=== PATIENT | male | born 1970 | race Caucasian/White ===

== ENCOUNTER 2017-04-26 11:40 | Emergency (ER) | payer SELFPAY ==
[~2017-04-26 11:40] MED LIST: CLIN150 PO; HYDR-3580 PO
[2017-04-26 11:42] VITALS: BP 161/96; PULSE 97; RESP 16; TEMP 97.5; O2SAT 95
[2017-04-26] MEDS ORDERED: predniSONE 20 MG TAB PO ONE (12:00)
[2017-04-26] MEDS ORDERED: RESP: ALBUTEROL 2.5 MG/IPRATROPIUM 0.5 MG NEB (SCH) INH ONE (12:00)
--- NOTE | 2017-04-26 12:02 | PD ---
HPI Chief Complaint: Respiratory Symptoms Time Seen by Provider: 12:02 Travel History International Travel<30 days: No Contact w/Intl Traveler<30days: No Traveled to known affect area: No History of Present Illness HPI 47-year-old male presents to the emergency department complaining of increased shortness of breath for 2 weeks. Patient states that he has had a productive cough with yellow sputum which is not normal for him. Patient states he has had a mild clear rhinorrhea. Patient denies fever, chills, chest pain, abdominal pain, urinary discomfort. States he is able to walk about 4 blocks before resting. Patient has WADE and has not been using his CPAP machine for 6 months because it is "broken". Patient states he occasionally has lower extremity edema but denies any today. Patient states that his knees are bothering him but admits to having meniscal injuries. Patient denies history of COPD however, patient is a lifelong smoker. Patient does not have a primary care physician currently. PFSH Past Medical History Cardiovascular Problems: No Diminished Hearing: No Genitourinary: No Musculoskeletal: No Neurologic: No Reproductive: No Respiratory: Yes Sleep Apnea: Yes Social History Alcohol Use: Yes (X2 PER WEEK) Tobacco Use: Yes (1/2 PPD) Substance Use: No Allergies-Medications (Allergen,Severity, Reaction): Coded Allergies: No Known Allergies (Verified , 01/01/16) Reported Meds & Prescriptions Reported Meds & Active Scripts Active Prednisone 10 Mg Tab 10 Mg PO DAILY 10 Days Ventolin Hfa 18 GM Inh (Albuterol Sulfate) 90 Mcg/Act Aer 2 Puff INH Q4-6H PRN Hydrocodone/Acetaminophen 7.5 mg/325 mg 1 Tab 1 Tab PO Q8HR PRN Cleocin (Clindamycin HCl) 150 Mg Cap 300 Mg PO Q6H 7 Days Review of Systems Except as stated in HPI: all other systems reviewed are Neg Physical Exam Narrative GENERAL: Well-developed well-nourished in no apparent distress, appears drowsy SKIN: Focused skin assessment warm/dry. HEAD: Atraumatic. Normocephalic. EYES: Pupils equal and round. No scleral icterus. No injection or drainage. ENT: No nasal bleeding or discharge. Mucous membranes pink and moist. Tympanic membranes bulging without erythema. Posterior pharynx appears mildly injected with cobblestoning. NECK: Trachea midline. No JVD. No lymphadenopathy CARDIOVASCULAR: Regular rate and rhythm. No murmur appreciated. RESPIRATORY: No accessory muscle use. Clear to auscultation. Breath sounds equal bilaterally. Diffuse wheezing without rales or rhonchi. GASTROINTESTINAL: Abdomen soft, non-tender, nondistended. Hepatic and splenic margins not palpable. MUSCULOSKELETAL: No obvious deformities. No clubbing. No cyanosis. No edema. Homans sign negative bilaterally. No pitting edema. NEUROLOGICAL: Awake and alert. No obvious cranial nerve deficits. Motor grossly within normal limits. Normal speech. PSYCHIATRIC: Appropriate mood and affect; insight and judgment normal. Data Data Last Documented VS Vital Signs Date Time Temp Pulse Resp B/P (MAP) Pulse Ox O2 Delivery O2 Flow Rate FiO2 04/26/17 11:42 97.5 97 16 161/96 (117) 95 Orders Orders Albuterol-Ipratropium Neb (Duoneb Neb) (04/26/17 12:00) Prednisone (Deltasone) (04/26/17 12:00) Chest, Pa & Lat (04/26/17 11:56) Ed Discharge Order (04/26/17 12:53) [facility] Medical Decision Making Medical Screen Exam Complete: Yes Emergency Medical Condition: Yes Differential Diagnosis Acute on chronic COPD, congestive heart failure, asthma, upper respiratory infection Narrative Course 47-year-old male presents to the emergency department complaining of increased shortness of breath for 2 weeks. Patient states that he has had a productive cough with yellow sputum which is not normal for him. Patient states he has had a mild clear rhinorrhea. Patient denies fever, chills, chest pain, abdominal pain, urinary discomfort. Says he has sick contacts in the house and likely obtain this from them. States he is able to walk about 4 blocks before resting. Patient has WADE and has not been using his CPAP machine for 6 months because it is "broken". Patient states he occasionally has lower extremity edema but denies any today. Patient denies history of COPD however, patient is a lifelong smoker. Patient does not have a primary care physician currently. Vital signs stable. Physical exam findings diffuse wheezing without rales or rhonchi. Patient found sleeping upon multiple reassessments and in no acute distress. Chest x-ray without acute process. Prednisone 40 mg administered. DuoNeb administered 1. Patient feels better and is ready to go home. Patient states he has not followed up with a primary care physician in quite some time. Patient has not had his CPAP machine because it has been broken. I strongly advised patient to obtain a CPAP machine for his fatigue throughout the day. Patient was given [facility] information. Patient will be discharged with albuterol inhalers and Medrol Dosepak. Advised to return to the emergency department for worsening or persistent symptoms. Diagnosis Primary Impression: Upper respiratory infection Qualified Codes: J06.9 - Acute upper respiratory infection, unspecified; B97.89 - Other viral agents as the cause of diseases classified elsewhere Additional Impression: Bronchitis Referrals: [facility] Patient Instructions: Acute Bronchitis (ED), General Instructions Additional Instructions: Follow up with your primary care physician within 2-3 days. If your symptoms persist or worsen, return to the emergency department. Use medication as prescribed. Follow up with [facility] Prednisone (Prednisone) 10 Mg Tab 10 MG PO DAILY for 10 Days, #10 TAB 0 Refills Prov: Jostin Carreon MD 04/26/17 Albuterol 18 GM Inh (Ventolin Hfa 18 GM Inh) 90 Mcg/Act Aer 2 PUFF INH Q4-6H Y for SHORTNESS OF BREATH, #1 INHALER 0 Refills Prov: Jostin Carreon MD 04/26/17 Disposition: 01 DISCHARGE HOME Condition: Stable Juany Riddle Apr 26, 2017 12:02
--- NOTE | 2017-04-26 12:24 | RADRPT ---
EXAM DATE/TIME: 04/26/2017 12:11 [facility] COMPARISON: No previous studies available for comparison. INDICATIONS : Chest pain and tightness. Cough and short of breath. MEDICAL HISTORY : Smoker SURGICAL HISTORY : None. ENCOUNTER: Initial ACUITY: 1 day PAIN SCORE: 3/10 LOCATION: Bilateral Center of chest. FINDINGS: PA and lateral views of the chest demonstrate the lungs to be symmetrically aerated without evidence of mass, infiltrate or effusion. The cardiomediastinal contours are unremarkable. Osseous structure s are intact. CONCLUSION: 1. No acute findings. Davdi Flores MD on April 26, 2017 at 12:19 Board Certified Radiologist. This report was verified electronically.
[2017-04-26] MEDS ORDERED: VENTAER INH (12:51)
[2017-04-26] MEDS ORDERED: PRED10 PO (12:51)
== END 2017-04-26 13:14 | disposition home or self-care (01) ==
LOC: NEPK 11:40
DX: J06.9 Acute upper respiratory infection, unspecified (principal); J40 Bronchitis, not specified as acute or chronic; G47.33 Obstructive sleep apnea (adult) (pediatric); F17.200 Nicotine dependence, unspecified, uncomplicated; Z79.899 Other long term (current) drug therapy
CPT/HCPCS: 71020; 94664; 99284; J7512